=== PATIENT | male | born 1960 | race Caucasian/White ===

== ENCOUNTER → 2017-01-30 | Outpatient (CLI) | payer BC ==
[~2017-01-30] MED LIST: ACET1TAB12 PO; CEPH-583 PO
[2017-01-30 17:16] LABS: BASOPHILS # (AUTO) 0.1 T/MM3 (0-0.2); BASOPHILS % (AUTO) 0.7 % (0-2); EOSINOPHILS # (AUTO) 0.2 T/MM3 (0-0.5); HCT - HEMATOCRIT 47.9 % (41-53); HGB - HEMOGLOBIN 16.8 GM/DL (13.5-17.5); IMMATURE GRANULOCYTE # (AUTO) 0.03 T/MM3 (0.00-0.03); IMMATURE GRANULOCYTE % (AUTO) 0.4 % (0.0-0.5); LYMPHOCYTES # (AUTO) 3.3 T/MM3 (1-4.8); MEAN CORPUSCULAR HGB 31.1 UUG (26-34); MEAN CORPUSCULAR HGB CONC(MCHC 35.1 GM/DL (31-37); MEAN CORPUSCULAR VOLUME 88.7 UM3 (80-100); MEAN PLATELET VOLUME 11.5 UM3 (9.4-12.4); MONOCYTES # (AUTO) 0.7 T/MM3 (0-0.8); MONOCYTES % (AUTO) 8.9 % (0-9.0); NEUTROPHILS #(AUTO)-ABSOLUTE 3.3 T/MM3 (1.8-7.7); WBC - WHITE BLOOD COUNT 7.4 T/MM3 (4.5-11.0)
[2017-01-30 17:26] LABS: ALBUMIN 4.5 G/DL (3.5-5.0); ALBUMIN/GLOBULIN RATIO 1.7 RATIO (1.1-2.2); ALKALINE PHOSPHATASE 75 U/L (38-126); ALT (SGPT) 52 U/L (21-72); ANION GAP 12 MEQ/L (5-15); AST (SGOT) 30 U/L (17-59); BUN/CREATININE RATIO 11 RATIO (6-26); CALCIUM 9.3 MG/DL (8.4-10.2); CHLORIDE 109 MEQ/L (98-107); CO2 - CARBON DIOXIDE 24 MEQ/L (22-30); GLOMERULAR FILTRATION RATE 77; GLUCOSE 86 MG/DL (75-110); POTASSIUM 4.1 MEQ/L (3.6-5); SODIUM 145 MEQ/L (134-144); TOTAL PROTEIN 7.1 G/DL (6.3-8.2)
== END ==
LOC: LAB 17:02
PROVIDERS: ATTEND Surgery Plastic and Reconstructive Surgery
DX: Z01.818 Encounter for other preprocedural examination (principal)
CPT/HCPCS: 36415; 80053; 85025

== ENCOUNTER 2017-02-03 09:47 | Day surgery (SDC) | payer BC ==
[~2017-02-03] VITALS: Ht 185.4 cm; Wt 108.1 kg
[~2017-02-03 09:47] MED LIST changes: -ACET1TAB12 PO; +CEFAZOLIN 1 GRAM INJECTION IV ONE; -CEPH-583 PO; +FENTANYL 100mcg/2ml INJECTION IV PRN; +LIDOCAINE 1% (10mg/ml) 2ml SDV INJ ONE; +LR 1,000 ML IV SCH; +MIDAZOLAM 5mg/5ml INJECTION IV PRN
[2017-02-03 10:09] VITALS: Ht 185.4 cm; Wt 108.1 kg
[2017-02-03 10:10] VITALS: BP 136/81; PULSE 64; RESP 15; TEMP 98.2; O2SAT 96
--- OUTSIDE RECORDS SUMMARY | 2017-02-03 10:13 | XMS REPORT | CCD ---
Author Author GUIDO BYRD Organization Unknown Address [address], [place] [id number] Phone 0 Care Team Providers Care Health And Wellness Manager Name Role Phone SANCHEZ WARREN, W Attending Physician [phone] C., N Nurse Assisstant 0 Vital Signs Vital Sign Value Unit Height 73 in Weight Measured 205 lbs BMI (Body Mass Index) 27.05 kg/m^2 BSA (Body Surface Area) 2.19 m^2 Allergies Allergy Code Allergy Type Reaction Status No Known Allergies 0 No known allergies Active Procedures Unknown. History of Immunizations Unknown. Problems Unknown. Results Unknown. Medications Unknown. Medications Administered Unknown. Encounters Unknown. Social History Smoking Status Code Start Date End Date Never smoker [id number] Patient Decision Aids Unknown. Instructions You were admitted to [facility] [place] [facility] on 10/14/2013. You were discharged from [facility] [place] on 10/14/2013. Should you have any questions prior to discharge, please contact a member of your healthcare team. If you have left the hospital and have any questions, please contact your primary care physician. Chief Complaint and Reason For Visit Chief Complaint Date of Onset COLONOSCOPY Function Status Unknown. Plan of Care Unknown. Referral/Transition of Care Unknown.
--- OUTSIDE RECORDS SUMMARY | 2017-02-03 10:13 | XMS REPORT | CCD ---
Author Author GUIDO BYRD Organization Unknown Address [address], [place] [id number] Phone 0 Care Team Providers Care Bodywork Therapist Name Role Phone [employer] APPRENTICE Attending Physician [phone] Vital Signs Unknown. Allergies Unknown. Procedures Unknown. History of Immunizations Unknown. Problems Unknown. Results LIPID PANEL Test Name Code Test Result Test Units Test Date/Time CHOLESTEROL 193.0000 mg/dL 10/08/2013 13:55 TRIGLYCERIDES 76.0000 mg/dL 10/08/2013 13:55 HDL 43.0000 mg/dL 10/08/2013 13:55 LDL, CALC 135.0000 mg/dL 10/08/2013 13:55 VLDL 15.0000 mg/dL 10/08/2013 13:55 CHOL/HDL RISK 4.5000 RATIO 10/08/2013 13:55 PT FASTING: YES N/A 10/08/2013 13:55 HGB A1C Test Name Code Test Result Test Units Test Date/Time HGB A1C 5.2000 % 10/08/2013 13:55 eAG 103.0000 mg/dL 10/08/2013 13:55 COMP METABOLIC Test Name Code Test Result Test Units Test Date/Time GLUCOSE 103.0000 mg/ dL 10/08/2013 13:55 BUN 9.0000 mg/dL 10/08/2013 13:55 CREATININE 1.2000 mg /dL 10/08/2013 13:55 AGE 52.0000 YEARS 10/08/2013 13:55 GFR 67.3000 10/08/2013 13:55 SODIUM 139.0000 mmol /L 10/08/2013 13:55 POTASSIUM 3.8000 mmol/L 10/08/2013 13:55 CHLORIDE 103.0000 mmol/L 10/08/2013 13:55 CO2 28.0000 mmol/L 10/08/2013 13:55 CALCIUM 8.7000 mg/ dL 10/08/2013 13:55 AST 18.0000 U/L 10/08/2013 13:55 ALT 36.0000 U/L 10/08/2013 13:55 ALKALINE PHOS 105.0000 U/L 10/08/2013 13:55 TOTAL PROTEIN 7.3000 g/dL 10/08/2013 13:55 ALBUMIN 4.5000 g/dL 10/08/2013 13:55 TOTAL BILI 0.7000 mg /dL 10/08/2013 13:55 CBC W/ DIFF Test Name Code Test Result Test Units Test Date/Time WBC 6.6000 x10^3 10/08/2013 13:55 RBC 5.5100 x10^6 10/08/2013 13:55 HEMOGLOBIN 17.5000 g /dL 10/08/2013 13:55 HEMATOCRIT 49.7000 % 10/08/2013 13:55 MCV 90.0000 fL 10/08/2013 13:55 MCH 31.8000 pg 10/08/2013 13:55 MCHC 35.3000 g/dL 10/08/2013 13:55 RDW 12.3000 % 10/08/2013 13:55 PLATELETS 214.0000 x10^3 10/08/2013 13:55 MPV 9.7000 fL 10/08/2013 13:55 NEUTROPHILS 56.1000 % 10/08/2013 13:55 LYMPHOCYTES 34.8000 % 10/08/2013 13:55 MONOCYTES 5.9000 % 10/08/2013 13:55 EOSINOPHILS 0.3000 % 10/08/2013 13:55 BASOPHILS 2.9000 % 10/08/2013 13:55 REFLEX MAN DIFF NO N /A 10/08/2013 13:55 TSH Test Name Code Test Result Test Units Test Date/Time TSH 2.2600 uIU/mL 10/08/2013 13:55 Medications Unknown. Medications Administered Unknown. Encounters Unknown. Social History Smoking Status Code Start Date End Date Never smoker [id number] Patient Decision Aids Unknown. Instructions You were admitted to [facility] on 10/08/2013. You had the following tests done: WBC RBC HEMOGLOBIN HEMATOCRIT MCV MCH MCHC RDW PLATELETS MPV NEUTROPHILS LYMPHOCYTES MONOCYTES EOSINOPHILS BASOPHILS REFLEX MAN DIFF GLUCOSE BUN CREATININE AGE GFR SODIUM POTASSIUM CHLORIDE CO2 CALCIUM AST ALT ALKALINE PHOS TOTAL PROTEIN ALBUMIN TOTAL BILI HGB A1C eAG PT FASTING: CHOLESTEROL TRIGLYCERIDES HDL LDL, CALC VLDL CHOL/HDL RISK TSH You were discharged from [facility] on 10/08/2013. Should you have any questions prior to discharge, please contact a member of your healthcare team. If you have left the hospital and have any questions, please contact your primary care physician. Chief Complaint and Reason For Visit Chief Complaint Date of Onset LAB Function Status Unknown. Plan of Care Unknown. Referral/Transition of Care Unknown.
--- OUTSIDE RECORDS SUMMARY | 2017-02-03 10:13 | XMS REPORT | Continuity of Care Document ---
Demographics Preferred Language Unknown Marital Status Unknown Zoroastrianism Affiliation Unknown Race Unknown Ethnic Group Unknown Author Author [facility] Organization [facility] Address Unknown Phone Unavailable Allergies Medications Problems Procedures Results Encounters ACCT No. Visit Date/Time Discharge Status Pt. Type Provider Facility Loc./Unit Complaint [id number] 10/19/2013 10:15:00 [facility] Unknown [id number] 10/11/2013 09:44:00 [facility] Unknown
--- NOTE | 2017-02-03 11:31 | ANESPREOP ---
Anesthesia Record Date and Time DATE: 02/03/17 TIME: 11:29 Pre-Op Diagnosis malignant melanoma rt forearm Proposed Surgical Procedure WIDE EXCISION OF MALIGNANT MELANOMA LEFT DORSAL ARM Allergies: Coded Allergies: No Known Allergies (Unverified , 02/03/17) Ht/Wt/BMI Height: 6 ' 1.00 " Weight: 108.100 kg BMI: 31.4 kg/m2 Vital Signs Date Time Temp Pulse Resp B/P Pulse Ox O2 Delivery O2 Flow Rate FiO2 02/03/17 10:10 98.2 64 15 136/81 96 Room Air Medications Inpatient Medications Current Medications Medications (Trade) Dose Ordered Sig/Ashkan Start Time Stop Time Status Last Admin Dose Admin Lactated Ringer's (Lactated Ringers) 1,000 ml @ 50 mls/hr Q20H 02/03/17 07:00 02/03/17 11:10 50 MLS/HR Midazolam HCl (Versed) 0.5-3 MG IV PUSH EVERY... Q10MIN PRN 02/03/17 07:00 Fentanyl (Fentanyl) 25-50MCG IV PUSH PRN NOT... PRN PRN 02/03/17 07:00 No Active Prescriptions or Reported Meds Currently on Beta Janeth: No Medical/Surgical History Anesthesia PMH: Reports: Cancer (MELANOMA L. FOREARM ), Denies: Anesthesia Reactions, Glaucoma, Malignant Hyperthermia (no family history MH), Sleep Apnea Smoking Status: Never smoker Has pt. smoked today?: No Use Chewing Tobacco?: Yes Second Hand Exposure: No Substance Use Type: does not use Substance last used: unknown Alcohol Intake: daily Last Drink: unknown Past Surgical History Orthopedic Surgeries: Abdominal Surgeries: Genitourinary Surgeries: Cardiac Surgeries: Endocrine Surgeries: Reproductive Surgeries: Neurological Surgeries: Ear Surgeries: Nose Surgeries: Throat Surgeries: Yes - TONSILECTOMY Other Surgeries: Yes - Colonoscopy Anesthesia Adverse Reactions: FOUND none Family Hx of Anesthesia Advers: none Hx of Motion Sickness: No Pertinent Findings EKG Rhythm: Sinus Rhythm Physical Exam Respiratory: Bilat breath sounds equal, Lungs clear Cardiovascular: FOUND Regular rate, rhythm, FOUND No murmur Airway Assessment Mallampati Score: I TMD: 3 Fingerbreadths Neck Extension: Good Overall Assessment: No Airway Concerns ASA: 2 Plan Anesthesia Plan: MAC Discussion Discussed risks/options/alternatives of anesthesia and questions answered. Patient consents. Nursing pain assessment noted. Present: Spouse Attestation Statement Prior to the delivery of any anesthetic medication, I examined the patient, developed the plan, obtained the patient's consent and discussed the risk and benefits of the procedure with the patient/guardian. PEGGY PARKINSON CRNA February 03, 2017 11:31
[2017-02-03] MEDS ORDERED: MIDAZOLAM 2mg/2ml INJECTION ONE ×2 (11:43→12:15)
[2017-02-03] MEDS ORDERED: FENTANYL 100mcg/2ml INJECTION ONE (11:44)
[2017-02-03] MEDS ORDERED: LIDOCAINE 1%/EPI 1:100,000 20ml MDV ONE (11:45)
--- NOTE | 2017-02-03 12:33 | PDPROCED ---
Procedure Note Date 02/03/17 Procedure Name Wide excision of malignant melanoma left dorsal forearm with complex closure: Lesion size 1.1 cm, excision 3.5 cm, final defect 10.6 cm Procedure Detail Preop dx: Malignant melanoma left dorsal forearm, at least Breslow depth 0.6 mm , Malachi's level 2 Postop dx: Same Anesthesia: MAC Case: Clean Specimens: Malignant melanoma with dogears from proximal and distal wound Complications: None EBL: Less than 20 ml SWATHI STEARNS MD February 03, 2017 12:29
[2017-02-03 12:45] VITALS: BP 110/78; PULSE 63; RESP 12; TEMP 97; O2SAT 97
[2017-02-03] MEDS ORDERED: CEPH-583 PO (12:52)
[2017-02-03] MEDS ORDERED: ACET1TAB12 PO (12:52)
--- NOTE | 2017-02-03 12:57 | ANESPO ---
Post-Op Note Date 02/03/17 Time: 12:56 Status Pt Participated in Evaluation: Pt participated in person Vital Signs Date Time Temp Pulse Resp B/P Pulse Ox O2 Delivery O2 Flow Rate FiO2 02/03/17 12:45 97.0 63 12 110/78 97 Room Air Respiratory Function: Airway patent, Regular respirations Cardiovascular Function: Regular pulse Mental Status: Alert/oriented Pain Level Intensity: 0 Hydration: Taking po fluids, IV infusing Complications during Recovery None apparent Post-Anesthesia Notes [email or web address]. [email or web address] Follow-Up Instructions Instructions Per Surgeon Additional Information none PEGGY PARKINSON CRNA February 03, 2017 12:57
[2017-02-03 13:00] VITALS: BP 112/80; PULSE 60; RESP 16; O2SAT 96
[2017-02-03] MEDS ORDERED: ONDANSETRON 4mg/2ml INJECTION IV PRN (13:00)
[2017-02-03] MEDS ORDERED: ATROPINE 1mg/10ml Syringe IV PRN (13:00)
[2017-02-03] MEDS ORDERED: HYDROCODONE/APAP 5 mg/325 mg TABLET PO PRN (13:00)
[2017-02-03 13:15] VITALS: BP 108/62; PULSE 64; RESP 16; O2SAT 96
[2017-02-03 13:25] VITALS: BP 116/66; PULSE 62; RESP 16; O2SAT 96
--- NOTE | 2017-02-03 16:42 | OPNOTEF ---
DATE OF OPERATION 02/03/217 PREOPERATIVE DIAGNOSIS Malignant melanoma left dorsal forearm, at least Breslow depth 0.6 mm, Malachi's level II. POSTOPERATIVE DIAGNOSIS Malignant melanoma left dorsal forearm, at least Breslow depth 0.6 mm, Malachi's level II. OPERATION Wide excision of malignant melanoma left dorsal forearm with complex closure: Lesion size was 1.1 cm, excision was 3.5 cm, final defect was 10.6 cm. SURGEON Aurelia Cassidy M.D. ANESTHESIA MAC INDICATIONS The patient is a 56-year-old man who was referred by Dr. Cornelius Houston for evaluation and management of a known malignant melanoma of his left dorsal forearm. the patient stated he had had a discolored area on his left forearm for approximately two years; it did recently start changing in appearance, becoming darker with an irregular color. The area was nontender and he denied any bleeding or pain. Dr. Houston performed a shave biopsy; pathology revealed a superficial spreading malignant melanoma at least Malachi's level II, Breslow depth 0.6 mm. No ulceration or perineural invasion was noted. The patient had no family history of skin cancer and he does have a history of frequent sun exposure. On exam, he had a 1.1 cm erythematous and healing biopsy site. In detailed discussion with the patient preoperatively, the risks, benefits and alternatives of wide excision of the lesion with possible closure were reviewed including, but not limited to, bleeding, infection, poor or keloid scarring, residual or recurrent disease, delayed healing, possible partial or complete loss of the flap or graft. We specifically discussed that should grafting be required, we would leave the wound open pending final pathology. The patient and his understood and wished to proceed. DESCRIPTION OF PROCEDURE The patient was marked preoperatively and then, after suitable IV anesthesia had been obtained, the left arm was prepped and draped in the usual sterile manner. Of note, he received 1 gram of Kefzol preoperatively and wore sequential stockings throughout. First, the lesion was excised with 1 cm margins and down to the level of the fascia . This was handed off as a specimen with the tag at the 12 o'clock margin. It was then deemed that the wound could be closed primarily and thus it was widely undermined and dog ears were removed proximally and distally. Of note, these dog ears were sent with the possibility that margins might be positive in either of those directions. Meticulous hemostasis was obtained, and the wound was then closed in two layers using interrupted buried sutures of 3-0 Monocryl, a running subcuticular suture of 4-0 Monocryl and a running 5-0 nylon. Benzoin and Steri-Strips were applied, as well as a dry sterile dressing, fluffs, Kerlix and an Jani wrap. The patient was then brought to the recovery room in stable condition. Estimated blood loss was less than 20 mL. The case was clean. Specimens: Malignant melanoma of his left dorsal forearm. MTDD
== END 2017-02-03 13:25 | disposition home or self-care (01) ==
LOC: SCU 09:47
PROVIDERS: ATTEND Surgery Plastic and Reconstructive Surgery
DX: C43.62 Malignant melanoma of left upper limb, including shoulder (principal)
CPT/HCPCS: 11604; 13121; 13122; A6210; J0690; J2250; J3010; J7120